=== PATIENT | female | born 1985 | race Caucasian/White ===

== ENCOUNTER 2019-05-30 22:27 | Emergency (ER) | payer OTHER ==
[~2019-05-30] VITALS: Ht 160 cm; Wt 74.4 kg
[2019-05-30 22:31] VITALS: Ht 160 cm; Wt 74.4 kg
[2019-05-31 00:37] LABS: BASOPHIL % 0.1 % (0-2); PLATELET COUNT 228 x10^3mcL (130-400); RED CELL DISTRIBUTION WIDTH 12.4 % (11.5-14.5)
[2019-05-31 00:49] LABS: CALCIUM 8.3 mg/dL (8.5-10.1); CHLORIDE SERUM 104 mmol/L (98-107); GFR1 > 60 mL/min; GLUCOSE SERUM 87 mg/dL (74-106); SODIUM SERUM 141 mmol/L (136-145)
[2019-05-31 00:54] LABS: ALBUMIN 3.8 g/dL (3.4-5.0); ALKALINE PHOSPHATASE 51 U/L (46-116); ALT/SGPT 22 U/L (14-59); AST/SGOT 15 U/L (15-37); BILIRUBIN TOTAL 0.1 mg/dL (0.20-1.00); TOTAL PROTEIN, SERUM 7.2 g/dL (6.4-8.2)
[2019-05-31 03:07] VITALS: BP 103/72
== END 2019-05-31 03:07 | disposition home or self-care (01) ==
LOC: ED 22:27
PROVIDERS: Emergency Medicine
DX: D25.9 Leiomyoma of uterus, unspecified (principal); N80.1 Endometriosis of ovary
CPT/HCPCS: J1885; J2270; J7030; Q0092

== ENCOUNTER 2020-02-21 14:11 | Emergency (ER) | payer OTHER ==
[~2020-02-21] VITALS: Ht 160 cm; Wt 74.8 kg
[2020-02-21 14:15] VITALS: Ht 160 cm; Wt 74.8 kg
[2020-02-21 17:51] LABS: BASOPHIL % 0.5 % (0-2); PLATELET COUNT 337 x10^3mcL (130-400); RED CELL DISTRIBUTION WIDTH 13.5 % (11.5-14.5)
[2020-02-21 17:58] LABS: CALCIUM 8.1 mg/dL (8.5-10.1); CARBON DIOXIDE 25.7 mmol/L (21-32); CHLORIDE SERUM 104 mmol/L (98-107); CREATININE SERUM 0.6 mg/dL (0.6-1.0); GFR1 > 60 mL/min; GLUCOSE SERUM 82 mg/dL (74-106); POTASSIUM SERUM 4.1 mmol/L (3.5-5.1); SODIUM SERUM 137 mmol/L (136-145)
[2020-02-21 18:09] LABS: ALKALINE PHOSPHATASE 34 U/L (46-116); ALT/SGPT 16 U/L (14-59); AST/SGOT 12 U/L (15-37); TOTAL PROTEIN, SERUM 6.9 g/dL (6.4-8.2)
[2020-02-21 18:26] LABS: ALBUMIN 3.3 g/dL (3.4-5.0)
[2020-02-21 18:37] VITALS: BP 117/74
[2020-02-21 18:44] LABS: BILIRUBIN TOTAL 0.13 mg/dL (0.20-1.00)
== END 2020-02-21 18:37 | disposition home or self-care (01) ==
LOC: ED 14:11
PROVIDERS: Emergency Medicine
DX: D25.9 Leiomyoma of uterus, unspecified (principal); Z98.890 Other specified postprocedural states
CPT/HCPCS: J2405; J7030; Q0092

== ENCOUNTER 2020-04-03 08:04 | Emergency (ER) | payer OTHER ==
[~2020-04-03] VITALS: Ht 160 cm; Wt 74.8 kg
[2020-04-03 08:08] VITALS: Ht 160 cm; Wt 74.8 kg
[2020-04-03 09:52] VITALS: BP 128/80
== END 2020-04-03 09:52 | disposition home or self-care (01) ==
LOC: ED 08:04
DX: S13.4XXA Sprain of ligaments of cervical spine, initial encounter (principal); S39.012A Strain of muscle, fascia and tendon of lower back, initial encounter; Z98.890 Other specified postprocedural states; V43.52XA Car driver injured in collision with other type car in traffic accident, initial encounter; Y93.I9 Activity, other involving external motion; Y92.488 Other paved roadways as the place of occurrence of the external cause; Y99.8 Other external cause status
CPT/HCPCS: J1885; J3010

== ENCOUNTER 2020-08-22 11:46 | Emergency (ER) | payer OTHER ==
[~2020-08-22] VITALS: Ht 160 cm; Wt 78.5 kg
[2020-08-22 11:52] VITALS: Ht 160 cm; Wt 78.5 kg
[2020-08-22 13:50] VITALS: BP 126/87
== END 2020-08-22 13:50 | disposition home or self-care (01) ==
LOC: ED 11:46
DX: J40 Bronchitis, not specified as acute or chronic (principal); N83.202 Unspecified ovarian cyst, left side; Z20.828 Contact with and (suspected) exposure to other viral communicable diseases; Z98.890 Other specified postprocedural states
CPT/HCPCS: Q0092; U0003-CS